=== PATIENT | male | born 1985 | race Caucasian/White ===

== ENCOUNTER 2017-03-31 20:17 | Emergency (ER) ==
[2017-03-31 20:25] VITALS: BP 132/81; TEMP 98; BMI 17.6
[2017-03-31] MEDS ORDERED: ROBITUSSIN AC SYRUP PO STA (20:35)
[2017-03-31] MEDS ORDERED: DECADRON 4 MG/ML SDV IM STA (20:35)
--- NOTE | 2017-03-31 20:38 | ED.PDOC ---
General ED Provider: Dr. MK COHEN Chief Complaint: Cough Stated Complaint: Been coughing, congested, was seen in the [facility] , and told him has pneumonia, took antibiotics, not getting better now. Time Seen by Physician: 20:36 Information Source: Patient Nursing and Triage Documentation Reviewed and Agree: Yes Respiratory Complaint Exam - Respiratory Complaint/Exam Symptoms Are: Still present Timing: Constant Initial Severity: Mild Current Severity: Mild Location: Chest Character: Reports: Productive cough Aggravating: Reports: Allergens, Exertion Alleviating: Reports: None Associated Signs and Symptoms: Reports: URI, Nasal congestion, Hoarseness. Denies: Rapid breathing, Dyspnea, Fever, Chills, Chest pain, Pleuritic chest pain, Wheezing, Hemoptysis, Dizziness, Calf pain, Calf swelling, Edema, Sinus discomfort, Vomiting, Sore throat, Weight loss, Decreased oral intake, Increased thirst, Increased appetite, Increased urination History of Healthcare-Acquired Pneumonia: No Related Surgical History: Reports: None Pulmonary Embolism Risk Factors: None Cardiac Risk Factors: Reports: None Pseudomonas Risk Factors: Reports: None Tuberculosis Risk Factors: Reports: None Status Asthmaticus Risk Factors: Reports: None Home Oxygen Use: No Recent Stress Test: No Recent Echo/LV Function: No Current Antibiotic Use: No Current Asthma Medication Use: No Respiratory Distress: None Inadequate Respiratory Effort: No Dysphagia Present: No Stridor Present: No JVD Present: No Retractions: Not Present Diminished Breath Sounds: No Differential Diagnoses: Pneumonia, Bronchitis Review of Systems - Review Of Systems Constitutional: Reports: Malaise, Weakness Eyes: Reports: No symptoms Ears, Nose, Mouth, Throat: Reports: No symptoms Respiratory: Reports: Cough Cardiac: Reports: No symptoms GI: Reports: No symptoms : Reports: No symptoms Musculoskeletal: Reports: No symptoms Skin: Reports: No symptoms Neurological: Reports: No symptoms Endocrine: Reports: No symptoms Hematologic/Lymphatic: Reports: No symptoms All Other Systems: Reviewed and Negative Past Medical History - Past Medical History Previously Healthy: Yes Endocrine: Reports: None Cardiovascular: Reports: None Respiratory: Reports: None Hematological: Reports: None Gastrointestinal: Reports: None Genitourinary: Reports: None Neuro/Psych: Reports: None Musculoskeletal: Reports: None Cancer: Reports: None - Surgical History General Surgical History: Reports: None - Family History Family History: Reports: None - Social History Smoking Status: Current some day smoker Smoking Cessation Counseling Time: > 3 min - 10 min Hx Substance Use: No Alcohol Screening: None - Immunizations Tetanus Shot up to Date: No Physical Exam - Physical Exam Appearance: Well-appearing, No pain distress, Well-nourished Eyes: SURJIT, EOMI, Conjunctiva clear ENT: Ears normal, Nose normal, Oropharynx normal Respiratory: Airway patent, Breath sounds clear, Breath sounds equal, Respirations nonlabored Cardiovascular: RRR, Pulses normal, No rub, No murmur GI/: Soft, Nontender, No masses, Bowel sounds normal, No Organomegaly Musculoskeletal: Normal strength, ROM intact, No edema, No calf tenderness Skin: Warm, Dry, Normal color Neurological: Sensation intact, Motor intact, Reflexes intact, Cranial nerves intact, Alert, Oriented Psychiatric: Affect appropriate, Mood appropriate Interpretation - Radiology Interpretation Radiology Interpretation By: ED Physician Radiology Results: Negative Exam Interpreted: CXR Critical Care Note - Critical Care Note Total Time (mins): 0 Course - Course Orders, Labs, Meds: Orders Category Date Time Status Dexamethasone 4 mg/ml Inj [Decadron 4 mg/ml Sdv] MEDS 03/31/17 20:35 Discontinued 4 mg IM ONCE STA Guaifenesin/Codeine Phosphate [Robitussin AC Syrup] MEDS 03/31/17 20:35 Discontinued 10 ml PO ONCE STA CHEST, 2 VIEWS PA & LAT Stat RADS 03/31/17 20:35 Taken Medications Discontinued Medications Generic Name Dose Route Start Last Admin Trade Name Freq PRN Reason Stop Dose Admin Dexamethasone Sodium Phosphate 4 mg 03/31/17 20:35 03/31/17 21:01 Decadron 4 Mg/Ml Sdv IM 03/31/17 20:36 4 mg ONCE STA Administration Guaifenesin/Codeine Phosphate 10 ml 03/31/17 20:35 03/31/17 21:02 Robitussin Ac Syrup PO 03/31/17 20:36 10 ml ONCE STA Administration Vital Signs: Temp Pulse Resp BP Pulse Ox 03/31/17 20:18 98.0 F 98 H 18 132/81 96 Departure - Departure Time of Disposition: 21:06 Disposition: HOME SELF-CARE Discharge Problem: URTI (acute upper respiratory infection) Instructions: Upper Respiratory Infection (ED) Condition: Stable Pt referred to PMD for follow-up: Yes Additional Instructions: increase hydration take medication with food Prescriptions: Azithromycin [Zithromax] 250 mg PO DIRECTED #6 tablet Guaifenesin/Codeine Phosphate [Robitussin AC Syrup] 10 ml PO Q6H #1 bottle Prednisone 10 mg PO BIDWM #14 tablet Allergies/Adverse Reactions: Allergies Penicillins Adverse Reaction (Verified 03/31/17 20:25) Swelling Home Medications: Ambulatory Orders Albuterol Sulfate 0.083% Neb [Albuterol 0.083% Neb] 0.083 inh INH TID 03/31/17 Azithromycin [Zithromax] 250 mg PO DIRECTED #6 tablet 03/31/17 Guaifenesin/Codeine Phosphate [Robitussin AC Syrup] 10 ml PO Q6H #1 bottle 03/31 Prednisone 10 mg PO BIDWM #14 tablet 03/31/17 Disposition Discussed With: Patient
--- NOTE | 2017-03-31 21:22 | DI ---
EXAM: Chest two views HISTORY: Cough FINDINGS: Normal cardiac and mediastinal contours. Normal pulmonary vasculature. Lungs are clear. No significant abnormality of the bony thorax. IMPRESSION: Chest radiograph within normal limits.
== END 2017-03-31 21:15 | disposition home or self-care (01) ==
LOC: ED 20:17
DX: J06.9 Acute upper respiratory infection, unspecified (principal); F17.210 Nicotine dependence, cigarettes, uncomplicated
CPT/HCPCS: 96372; 99282